=== PATIENT | male | born 1995 | race Caucasian/White ===

== ENCOUNTER 2017-08-01 15:51 | Emergency (ER) | payer BC ==
--- NOTE | 2017-08-01 16:41 | EDPHY ---
H & P Stated Complaint: accidentally took 100mg vitamin B 12 at 11 am today Time Seen by Provider: 08/01/17 16:07 HPI/ROS: Chief Complaint: Concerned about B12 overdose HPI: The patient accidentally took 100 mg of B12 instead of 100 mcg. The patient contacted poison Control who referred him to the emergency department. He has developed some red stool and urine but denies additional acute complaints. REVIEW OF SYSTEMS: Neuro: no headache, numbness, weakness Musculoskeletal: as above Skin: no abrasion or lacerations - Personal History Current Tetanus/Diphtheria Vaccine: Unsure Current Tetanus Diphtheria and Acellular Pertussis (TDAP): Unsure - Medical/Surgical History Hx Asthma: No Hx Chronic Respiratory Disease: No Hx Diabetes: No Hx Cardiac Disease: No Hx Renal Disease: No Hx Cirrhosis: No Hx Alcoholism: No Hx HIV/AIDS: No Hx Splenectomy or Spleen Trauma: No Other PMH: scoliosis, wisdom tooth extraction. anxiety - Social History Smoking Status: Current every day smoker - Physical Exam Exam: General Appearance: Alert, no distress Eyes: Pupils equal and round no pallor or injection ENT, Mouth: Mucous membranes moist Respiratory: There are no retractions, lungs are clear to auscultation Cardiovascular: Regular rate and rhythm Gastrointestinal: Abdomen is soft and nontender, no masses, bowel sounds normal Neurological: A&O, normal motor function, normal sensory exam, normal cranial nerves Skin: Warm and dry, no rashes Musculoskeletal: Neck is supple nontender Extremities: symmetrical, full range of motion Constitutional: Initial Vital Signs Temperature (C) 36.8 C 08/01/17 15:55 Heart Rate 101 H 08/01/17 15:55 Respiratory Rate 18 08/01/17 15:55 Blood Pressure 152/90 H 08/01/17 15:55 O2 Sat (%) 98 08/01/17 15:55 O2 Delivery Mode Room Air Allergies/Adverse Reactions: No Known Allergies Allergy (Unverified 12/27/14 00:21) Home Medications: Medication Instructions Recorded Vitamin B12 08/01/17 Medical Decision Making ED Course/Re-evaluation: Informed the patient that B12 is not a vitamin associated with significant toxicity in the dose he reportedly took. No workup is indicated at this point time. The patient is not suicidal homicidal. He denies additional acute complaints. Departure - Departure Disposition: Home, Routine, Self-Care Clinical Impression: Accidental overdose Condition: Good Instructions: Vitamin B-12 (By mouth) Additional Instructions: 1. The amount of B12 you consumed is not toxic. 2. Please do not take vitamins and supplements outside of the prescribed dosages. Referrals: NONE *PRIMARY CARE P,. [Primary Care Provider] - As per Instructions
[2017-08-01 16:49] VITALS: BP 136/100
== END 2017-08-01 16:49 | disposition home or self-care (01) ==
DX: T45.2X1A Poisoning by vitamins, accidental (unintentional), initial encounter (principal); F17.200 Nicotine dependence, unspecified, uncomplicated